=== PATIENT | female | born 1975 | race Two or more races ===

== ENCOUNTER 2017-06-27 11:29 | Emergency (ER) | payer OTHER ==
[2017-06-27] MEDS ORDERED: ONDANSETRON HCL INJ/PF 4 MG/2 ML SDV ONE (11:45)
[2017-06-27] MEDS ORDERED: HYDROMORPHONE HCL INJ/PF 2 MG/ML AMPULE ONE (11:45)
[2017-06-27] MEDS ORDERED: AMPICILLIN SOD/SULBACTAM 3 GM VIAL IV ONE (12:07)
[2017-06-27] MEDS ORDERED: NORMAL SALINE 1000 ML 1,000 ML IV ONE (12:28)
--- NOTE | 2017-06-27 12:34 | RADIOLOGY REPORT (SQ) ---
EXAM DESCRIPTION: FOREARM RIGHT COMPLETED DATE/TIME: 06/27/2017 12:27 pm REASON FOR STUDY: dog bite COMPARISON: None. NUMBER OF VIEWS: Two views. TECHNIQUE: Two radiographic images acquired of the right forearm, including elbow and wrist in at le ast one projection. LIMITATIONS: None. FINDINGS: MINERALIZATION: Normal. BONES: No acute fracture. No worrisome bone lesions. SOFT TISSUES: Extensive soft tissue defects without foreign bodies. OTHER: No other significant finding. IMPRESSION: No acute fracture. No radio opaque foreign bodies. Extensive soft tissue defects. TECHNICAL DOCUMENTATION: JOB ID: [id number] [employer]- All Rights Reserved
[2017-06-27] MEDS ORDERED: HYDROMORPHONE HCL INJ/PF 2 MG/ML AMPULE IV ONE (12:35)
[2017-06-27] MEDS ORDERED: DIPH/PERTUSS(ACELL)/TETANUS VAC/PF 0.5 ML SYR (>=10YO) IM ONE (12:41)
[2017-06-27 12:55] LABS: ABSOLUTE EOSINOPHILS # (AUTO) 0.2 10^3/uL (0.0-0.6); ABSOLUTE MONOCYTES (AUTO) 0.6 10^3/uL (0.1-1.4); ABSOLUTE NEUT (AUTO) 4.4 10^3/uL (1.7-8.2); BASOPHILS % (AUTO) 0.5 % (0-2); EOSINOPHILS % (AUTO) 2.1 % (0-6); HEMATOCRIT 37.3 % (36.0-47.0); HEMOGLOBIN 12.1 g/dL (12.0-15.5); LYMPHOCYTES % (AUTO) 36.9 % (13-45); MEAN CORPUSCULAR HGB CONC 32.3 g/dL (32.0-36.0); MEAN CORPUSCULAR VOLUME 68 fl (80-97); MONOCYTES % (AUTO) 6.7 % (3-13); RED BLOOD COUNT 5.48 10^6/uL (3.72-5.28); RED CELL DISTRIBUTION WIDTH 14.9 % (11.5-14.0); SEGMENTED NEUTROPHILS % (AUTO) 53.8 % (42-78); WHITE BLOOD COUNT 8.2 10^3/uL (4.0-10.5)
--- NOTE | 2017-06-27 12:57 | ER Document Report ---
ED Animal Bite - General Chief Complaint: Dog Bite Stated Complaint: DOG BITE Time Seen by Provider: 06/27/17 11:42 Mode of Arrival: Ambulatory Information source: Patient, Relative Notes: Patient is a 42-year-old female was brought to emergency room by private car with a complaint of dog bite to the right forearm. Patient states that her and family were walking in a local neighborhood a dog came running up to them patient put her hand out to pet the dog and it attacked her right forearm. Family member state that they actually had to pull the dog off of patient. Patient comes in with a 10 x 5 or 10 x 7 cm open laceration to the inferior medial portion of forearm and a 3 cm avulsion type laceration to the dorsal aspect of the right forearm at approximately mid area. Bleeding is currently controlled. Patient denies any other injuries. Patient also states that she is retired . She retired in July 2016. She is unsure as to her last tetanus shot. TRAVEL OUTSIDE OF THE [place] IN LAST 30 DAYS: No - HPI Patient complains to provider of: Dog bite right forearm Location of injury: RUE Severity of injury: Bitten Onset: Just prior to arrival Quality of pain: Burning, Sharp, Throbbing Pain Level: 4 Severity: Severe Context of attack: "Provoked" attack, Other - Patient states they were walking in the neighborhood dog came running up to her she reached out to pet it and it attacked her right arm. Family and patient state that the dog had a collar in place. They state it did not appear to be sick. They were unable to catch the dog or know where it came from. Summary of what happened: As stated patient was walking with the family in the neighborhood a dog ran up to patient and she reached down to pet it without thinking and the dog latched onto her arm. It was reported that family had to pull the dog off the patient. Dog is not physically in custody and currently are unaware of his location Type of animal: Dog Appearance of animal: Appeared well Breed and color: Unknown but they believe it was as big as a [place]. Animal's immunizations: Unknown Animal captured or known: No Animal control notified: Yes Animal control form completed: No - Related Data Allergies/Adverse Reactions: No Known Allergies Allergy (Verified 06/27/17 11:31) Past Medical History - General Information source: Patient, Relative Last Menstrual Period: Last month/patient is also had a tubal ligation and has an IUD periods are - Social History Smoking Status: Never Smoker Cigarette use (# per day): No Chew tobacco use (# tins/day): No Smoking Education Provided: No Frequency of alcohol use: Rare Drug Abuse: None Lives with: Family Family History: Reviewed & Not Pertinent Review of Systems - Review of Systems Constitutional: No symptoms reported EENT: No symptoms reported Cardiovascular: No symptoms reported Respiratory: No symptoms reported Gastrointestinal: No symptoms reported Genitourinary: No symptoms reported Female Genitourinary: No symptoms reported Musculoskeletal: Muscle pain Skin: Other - Puncture wounds and avulsion lacerations from dog bite Hematologic/Lymphatic: No symptoms reported Neurological/Psychological: No symptoms reported -: Yes All other systems reviewed and negative Physical Exam - Vital signs Vitals: Temp Pulse Resp BP Pulse Ox 97.6 F 72 18 127/76 H 99 06/27/17 11:31 06/27/17 11:31 06/27/17 11:31 06/27/17 11:31 06/27/17 11:31 Interpretation: Normal - General General appearance: Alert, Anxious, Other - Obvious pain and discomfort - HEENT Head: Normocephalic, Atraumatic - Respiratory Respiratory status: No respiratory distress Chest status: Nontender Breath sounds: Normal Chest palpation: Normal - Cardiovascular Rhythm: Regular Heart sounds: Normal auscultation Murmur: No - Extremities General upper extremity: Tender, Other - Examination of patient's right forearm shows multiple areas of trauma. The first and largest is on the inferior medial aspect of the right forearm there is a note dog drip laceration approximately 10 cm long by about 5 cm wide. Question the area whether it is retraction of skin by tension or there is avulsion of actual tissue. It appears to be retraction. Viewing that same wound there is visualized tendon there is exposed and with flexion extension abduction and abduction there appears to be no tendon avulsion or laceration. The second area is a dorsal portion along the extensor line of the thumb mid forearm there is a 2-1/2-3 cm also a puncture avulsion type laceration again could be retraction from tension however unable to view any visual tendons but patient has a deficit in extensor tendon function unable to lift her thumb. She has good flexion. 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 Patient also has 2-3 other puncture wounds by presumably canine teeth of the dog. That at this time are inconsequential. Patient also displays good pulses at the ulnar radial areas. - Skin Skin Temperature: Warm Skin Color: Other - See description in skin. Skin irregularity: Laceration Course - Vital Signs Vital signs: Temp Pulse Resp BP Pulse Ox 97.6 F 72 18 127/76 H 99 06/27/17 11:31 06/27/17 11:31 06/27/17 11:31 06/27/17 11:31 06/27/17 11:31 - Laboratory Result Diagrams: 06/27/17 11:46 06/27/17 11:46 Laboratory results interpreted by me: 06/27/17 06/27/17 11:46 11:46 RBC 5.48 H MCV 68 L MCH 22.0 L RDW 14.9 H Chloride 108 H - Diagnostic Test Radiology reviewed: Reports reviewed - Plain radiographs of the right forearm show no bone fractures or foreign bodies. - Transfer of Care Notes: 06/27/17 13:[address] Cruz also evaluate patient's right forearm and was felt that patient did have an extensor tendon of the thumb dysfunction that patient would probably have to go to OR to have the tendon repaired and also to clean out the wound as deep as it was in being a dog bite by an orthopedic surgeon. We discussed our options of calling orthopedics however we do not have one eye contact here today for at [facility] and found out patient has recently retired from the and currently is covered by them. I contacted the transfer center and I talked to Dr. Delgado the orthopedic senior project controls specialist who was exceptionally nice explained to him the situation and he has requested that [facility] I finished with the x-rays and if there are any abnormalities on x-ray I am to return his call. Dr. Churchill is the ER physician I was in communication with explained the situation to her as well and she is now under the assumption that Dr. Murguia will take a look at patient. Will be shipping patient out via EMS to the [facility] very shortly. Patient was unsure as to her exact tetanus shot history so we elected to provide one here. Labs have been ordered and are in process and will send results when patient leaves. 06/27/17 13:44 Dr. Cruz and I have discussed that patients best option with this type of a open dog bite is with the tendon damage it needs to be cleaned out exceptionally well. It is an area where infection is highly likely if not cleaned out sufficiently and we will be unable to close completely therefore surgical intervention we feel is necessary for this type of a problem. Given the involvement of the extensor tendon orthopedic surgeon is most logical choice and is would be consulted for definitive care regardless. Dr. Calhoun at [facility] was very informative and very helpful as was Dr. Churchill the emergency room physician when I discussed the case with her. Discharge - Discharge Clinical Impression: Dog bite of right forearm Condition: Fair Disposition: [facility] Admitting Provider: Dr. Delgado/orthopedist and Dr. Churchill ER physician
[2017-06-27 13:06] LABS: ALANINE AMINOTRANSFERASE 27 U/L (9-52); ALBUMIN 4.2 g/dL (3.5-5.0); ALKALINE PHOSPHATASE 65 U/L (38-126); ANION GAP 12 (5-19); ASPARTATE AMINO TRANSFERASE 19 U/L (14-36); BILIRUBIN,DIRECT 0.2 mg/dL (0.0-0.4); BILIRUBIN,TOTAL 0.2 mg/dL (0.2-1.3); BLOOD UREA NITROGEN 12 mg/dL (7-20); CALCIUM 9.5 mg/dL (8.4-10.2); CARBON DIOXIDE 25 mmol/L (22-30); CHLORIDE 108 mmol/L (98-107); GLUCOSE 104 mg/dL (75-110); POTASSIUM 3.9 mmol/L (3.6-5.0); SODIUM 144.6 mmol/L (137-145); TOTAL PROTEIN 7.1 g/dL (6.3-8.2)
[2017-06-27] MEDS ORDERED: NORMAL SALINE 1000 ML 1,000 ML IV PRN (13:46)
[2017-06-27 13:49] VITALS: BP 120/82
== END 2017-06-27 14:40 ==
LOC: ER 11:29
DX: S51.851A Open bite of right forearm, initial encounter (principal); S56.501A Unspecified injury of other extensor muscle, fascia and tendon at forearm level, right arm, initial encounter; W54.0XXA Bitten by dog, initial encounter; Y92.410 Unspecified street and highway as the place of occurrence of the external cause; Z98.51 Tubal ligation status; Z97.5 Presence of (intrauterine) contraceptive device; Z23 Encounter for immunization
CPT/HCPCS: 96376; 99284; 96361; 90471; 96375; 96365; 36415; 85025; 80053; 73090; 90715; J0295; J1170; J2405; J7030